=== PATIENT | female | born 1945 | race Caucasian/White ===

== ENCOUNTER 2018-06-01 01:38 | Emergency (ER) | payer OTHER, SELFPAY ==
[~2018-06-01] VITALS: Ht 160 cm; Wt 84.0 kg
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
[2018-06-01] MEDS ORDERED: LORazepam 2 MG/ML, 1ML IVPush ONE (02:00)
[2018-06-01] MEDS ORDERED: SODIUM CHLORIDE FLUSH 10ML SYR IVF ONE (02:00)
[2018-06-01] MEDS ORDERED: SODIUM CHLORIDE 0.9% 1,000ML IVBOLUS ONE (02:00)
[2018-06-01 02:11] LABS: INTERNATIONAL NORMALIZED RATIO 0.94 (0.93-1.1); PROTHROMBIN TIME 9.9 Seconds (9.6-11.5)
[2018-06-01] MEDS ORDERED: LORazepam 2 MG/ML, 1ML ONE (02:12)
[2018-06-01 02:13] LABS: ALBUMIN 3.4 g/dL (3.4-5.0); ANION GAP 7 mmol/L (5-15); CALCIUM 8.4 mg/dL (8.5-10.1); CHLORIDE 114 mmol/L (98-107); CREATININE 1.09 mg/dL (0.55-1.02)
[2018-06-01 02:17] LABS: ALANINE AMINOTRANSFERASE 19 U/L (12-78); ALKALINE PHOSPHATASE 162 U/L (45-117); BILIRUBIN,TOTAL 0.8 mg/dL (0.2-1.0); TOTAL PROTEIN 7.1 g/dL (6.4-8.2); TROPONIN I < 0.015 ng/mL (0.000-0.045)
[2018-06-01] MEDS ORDERED: synthroid (02:19)
--- NOTE | 2018-06-01 02:32 | NUR ---
PT RESTING IN ROOM. NO ACUTE DISTRESS NOTED. VS STABLE. SENIOR GRANTS OFFICER ON NSR NOTED. CALL LIGHT IN PLACE. WILL CONTINUE TO MONITOR.
[2018-06-01 02:44] LABS: MEAN CORPUSCULAR HEMOGLOBIN 26.8 pg (27.0-34.8); MEAN CORPUSCULAR HGB CONC 31.7 g/dL (32.4-35.8); MEAN CORPUSCULAR VOLUME 84.4 fL (80-100); MEAN PLATELET VOLUME 8.5 fL (7.4-10.4); PLATELET COUNT 489 x10^3/uL (130-400); RED CELL DISTRIBUTION WIDTH 19.7 % (9.6-15.2)
--- NOTE | 2018-06-01 03:05 | NUR ---
pt watching tv in room. no acute distress noted. vs stable. air valve repairer on. nsr noted. call light in place. will continue to monitor.
[2018-06-01 03:14] LABS: MD YES
[2018-06-01 03:17] VITALS: BP 156/78
[2018-06-01 03:19] LABS: LYMPH#(MANUAL) 1.58 x10^3/uL (1-3.4); LYMPHS% (MANUAL) 16 % (22-44); MONOS#(MANUAL) 1.49 x10^3/uL (0.3-2.7); MONOS% (MANUAL) 15 % (2-9); REACTIVE LYMPHS % (MANUAL) 1 % (0-0); SEG#(MANUAL) 6.73 x10^3/uL (1.8-6.8); SEGS% (MANUAL) 68 % (42-75)
[2018-06-01 03:20] LABS: ANISOCYTOSIS 1+
[2018-06-01 03:21] LABS: HYPOCHROMIA 1+; OVALOCYTES 1+; TARGET CELLS 1+
[2018-06-01 03:23] LABS: <PLATELET ESTIMATE> INCREASED; LARGE PLATELETS 1+; SMUDGE CELLS 1+
== END 2018-06-01 03:19 | disposition home or self-care (01) ==
LOC: ED 02:28
DX: I10 Essential (primary) hypertension (principal); I48.91 Unspecified atrial fibrillation
CPT/HCPCS: 36415; 71045; 80053; 80307; 84484; 85025; 85610; 85730; 93005; 96374; 99284; J2060; J7030